=== PATIENT | male | born 1975 | race Caucasian/White ===

== ENCOUNTER 2020-12-23 23:28 | Emergency (ER) | payer SELFPAY ==
[2020-12-23 23:31] VITALS: BP 144/96; PULSE 112; RESP 10; TEMP 36.7; O2SAT 100
[2020-12-23 23:40] VITALS: RESP 16
--- NOTE | 2020-12-24 00:21 | ED.GENADULT ---
HPI - General Adult General Chief complaint: Overdose Stated complaint: OVER DOSE - 6MG NARCAN Time Seen by Provider: 12/23/20 23:30 History of Present Illness HPI narrative: Patient 45-year-old gentleman who presents the emergency department chief complaint of opiate overdose. Patient reports he was using fentanyl tonight snorted it became unresponsive was found by EMS minimally responsive and was given 6 mg of Narcan. Patient subsequently has woke up is alert and oriented able to provide all history denies suicidal or homicidal ideation. Related Data Allergies Allergy/AdvReac Type Severity Reaction Status Date / Time No Known Allergies Allergy Verified 12/23/20 23:43 Review of Systems Review of Systems: Narrative: A 10 system review of systems was completed on the patient and is negative except for what is stated in the HPI. Nursing and ancillary documentation was reviewed. PMFSH Comments Social history the patient reports to recreational opiate use Exam Narrative: Exam Narrative: GENERAL: Well-appearing, well-nourished, and in no acute distress. HEAD: Normocephalic, atraumatic. EYES: PERRLA and EOMI. ENT: Nares clear, no rhinorrhea or epistaxis. Mucous membranes moist. NECK: Supple. CHEST: Clear to auscultation. No respiratory distress. HEART: Regular rate and rhythm. No murmur heard. Normal peripheral pulses. ABDOMEN: Soft, nontender, nondistended, normal active bowel sounds. EXTREMITIES: Normal range of motion. No edema. SKIN: Warm, dry, no rash. NEURO: No focal deficits. Alert and oriented x3. PSYCH: Normal mood and affect. Course Vital Signs Vital signs: Vital Signs Temperature 36.7 C 12/23/20 23:31 Pulse Rate 112 H 12/23/20 23:31 Respiratory Rate 10 L 12/23/20 23:31 Blood Pressure 144/96 H 12/23/20 23:31 Pulse Oximetry 100 12/23/20 23:31 Temperature 36.7 C 12/23/20 23:31 Pulse Rate 112 H 12/23/20 23:31 Respiratory Rate 16 12/23/20 23:40 Blood Pressure 144/96 H 12/23/20 23:31 Pulse Oximetry 100 12/23/20 23:31 Medical Decision Making Vital Signs Vital Signs: Vital Signs Temperature 36.7 C 12/23/20 23:31 Pulse Rate 112 H 12/23/20 23:31 Respiratory Rate 10 L 12/23/20 23:31 Blood Pressure 144/96 H 12/23/20 23:31 Pulse Oximetry 100 12/23/20 23:31 Temperature 36.7 C 12/23/20 23:31 Pulse Rate 112 H 12/23/20 23:31 Respiratory Rate 16 12/23/20 23:40 Blood Pressure 144/96 H 12/23/20 23:31 Pulse Oximetry 100 12/23/20 23:31 Discharge Plan Discharge Clinical Impression: Drug overdose Qualifiers: Encounter type: initial encounter Injury intent: accidental or unintentional Qualified Code(s): T50.901A - Poisoning by unspecified drugs, medicaments and biological substances, accidental (unintentional), initial encounter Opiate overdose Qualifiers: Encounter type: initial encounter Injury intent: accidental or unintentional Qualified Code(s): T40.601A - Poisoning by unspecified narcotics, accidental (unintentional), initial encounter Patient Disposition: Home, Self-Care Condition: Stable Instructions: Antibiotic Form, Adult Overdose (ED), Prescription Narcotic Overdose (ED), Narcotic Use Disorder (ED) Prescriptions: New Narcan 4 mg/actuation spray,non-aerosol 1 spray intranasal Q2-3M PRN (Reason: opioid overdose) Qty: 2 RF: 0 Follow-up/Referrals: PHYSICIAN,O[facility]ER [employer] [Primary Care Provider] - Stephen Ahumada MD [Physician] - 1 Week Time of Disposition: 00:24
[2020-12-24 00:41] VITALS: BP 113/76; PULSE 76; RESP 16; O2SAT 98
== END 2020-12-24 00:50 | disposition home or self-care (01) ==
PROVIDERS: Emergency Provider Emergency Medicine
DX: T40.2X1A Poisoning by other opioids, accidental (unintentional), initial encounter (principal)
CPT/HCPCS: 99283